=== PATIENT | male | born 1970 | race Caucasian/White ===

== ENCOUNTER 2017-04-07 16:14 | Emergency (ER) | payer OTHER ==
[~2017-04-07] VITALS: Ht 193 cm; Wt 124.0 kg
[~2017-04-07 16:14] MED LIST: CHLO.12%30 SSP; METH40TA9 PO; NAPR-576 PO; OMPR20CCR PO; PENI500T PO
[2017-04-07 16:21] VITALS: BP 119/81; PULSE 94; RESP 16; TEMP 98.6; O2SAT 96
[2017-04-07] MEDS ORDERED: METH10TA PO (16:52)
[2017-04-07] MEDS ORDERED: D 10CAP PO (16:52)
[2017-04-07] MEDS ORDERED: METF500T PO (16:52)
[2017-04-07] MEDS ORDERED: OMEP20TA PO (16:52)
[2017-04-07] MEDS ORDERED: GLIP5TAB8 PO (16:52)
[2017-04-07] MEDS ORDERED: DAPA1TAB3 PO (16:52)
[2017-04-07] MEDS ORDERED: LISI10TA3 PO (16:52)
[2017-04-07] MEDS ORDERED: ATOR10TA15 PO (16:52)
--- NOTE | 2017-04-07 17:15 | PD ---
HPI Chief Complaint: Pain: Acute or Chronic Time Seen by Provider: 16:55 Travel History International Travel<30 days: No Contact w/Intl Traveler<30days: No Traveled to known affect area: No History of Present Illness HPI 46-year-old male presents to the emergency room for evaluation of right foot pain. Patient has had diabetic foot ulcer of the right foot for the past year. States this is the best that his wound has lost but his pain has never been so severe. Pain is localized to the ulcer without radiation. He has been taking 800 mg ibuprofen without relief in symptoms. He sees Dr. Jackson. Patient last saw his tapering machine operator 2 weeks ago and was prescribed Bactrim. States he finished his antibiotics but reports worsening pain. Denies significant drainage. States since being on antibiotics his wound seems to have opened. His tapering machine operator told him that if the antibiotics do not work this time, she was concerned for bone infection. Patient denies fever, chills, nausea, and vomiting. PFSH Past Medical History Hx Anticoagulant Therapy: No Asthma: Yes (CHILD) Cardiovascular Problems: Yes (HTN) Diabetes: Yes Patient Takes Glucophage: Yes Diminished Hearing: No GERD: Yes Genitourinary: Yes (KIDNEY STONES) Hypertension: Yes (not currently taking meds) Kidney Stones: Yes Musculoskeletal: Yes (CHRONIC LOW BACK) Psychiatric: Yes (ANXIETY) Respiratory: Yes (ASTHMA) Integumentary: Yes (STAPH INFECTIONS, right plantar foot chronic ulcer) Immunizations Current: Yes Tetanus Vaccination: < 5 Years Influenza Vaccination: No Past Surgical History Body Medical Devices: PT C/O BACK PAIN RAD DOWN TO RT HEEL. 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) Allergies-Medications (Allergen,Severity, Reaction): Coded Allergies: No Known Allergies (Verified , 04/07/17) Reported Meds & Prescriptions Reported Meds & Active Scripts Active Lortab (Hydrocodone-Acetaminophen) 5-325 Mg Tab 1 Tab PO Q6H PRN Ibuprofen 600 Mg Tab 600 Mg PO Q8HR PRN Reported Methadone (Methadone HCl) 10 Mg Tab 20 Mg PO DAILY Omeprazole 20 Mg Tab 20 Mg PO DAILY Atorvastatin (Atorvastatin Calcium) 10 Mg Tab 10 Mg PO HS Lisinopril 10 Mg Tab 10 Mg PO DAILY D 59807 (Cholecalciferol) 10,000 Unit Cap 5 Cap PO WEEKLY Glipizide 5 Mg Tab 5 Mg PO BIDAC Take 30 minutes before a meal Metformin (Metformin HCl) 500 Mg Tab 500 Mg PO BIDPC With meals Farxiga (Dapagliflozin) 10 Mg Tab 10 Mg PO DAILY Review of Systems Except as stated in HPI: all other systems reviewed are Neg Physical Exam Narrative GENERAL: Well-nourished, well-developed male in no acute distress. Afebrile. Ambulatory. SKIN: Focused skin assessment warm/dry. There is a 3 cm in diameter ulcer to the right plantar foot, just below the first metatarsal phalangeal joint. No surrounding erythema. No purulent drainage. No foul smelling odor. No lymphangitis. The center of the ulcer is black. HEAD: Normocephalic. EYES: No scleral icterus. No injection or drainage. NECK: Supple, trachea midline. No JVD or lymphadenopathy. CARDIOVASCULAR: Regular rate and rhythm without murmurs, gallops, or rubs. RESPIRATORY: Breath sounds equal bilaterally. No accessory muscle use. EXTREMITY: Right rough rice tender to palpation especially near the ulcer. 2+ dorsalis pedis pulse. Full range of motion. No significant edema. Less than 2 second capillary refill distally. Data Data Last Documented VS Vital Signs Date Time Temp Pulse Resp B/P Pulse Ox O2 Delivery O2 Flow Rate FiO2 04/07/17 16:21 98.6 94 16 119/81 96 Orders Complete Blood Count With Diff (04/07/17 17:13) Basic Metabolic Panel (Bmp) (04/07/17 17:13) Mri Foot W&W/O Contrast (04/07/17 ) Gadodiamide Pf Inj (Omniscan Pf Inj) (04/07/17 18:53) Labs Laboratory Tests Test 04/07/17 17:25 White Blood Count 14.4 TH/MM3 Red Blood Count 4.95 MIL/MM3 Hemoglobin 14.3 GM/DL Hematocrit 43.3 % Mean Corpuscular Volume 87.5 FL Mean Corpuscular Hemoglobin 29.0 PG Mean Corpuscular Hemoglobin 33.1 % Concent Red Cell Distribution Width 13.8 % Platelet Count 248 TH/MM3 Mean Platelet Volume 7.8 FL Neutrophils (%) (Auto) 70.1 % Lymphocytes (%) (Auto) 20.6 % Monocytes (%) (Auto) 7.0 % Eosinophils (%) (Auto) 1.7 % Basophils (%) (Auto) 0.6 % Neutrophils # (Auto) 10.1 TH/MM3 Lymphocytes # (Auto) 3.0 TH/MM3 Monocytes # (Auto) 1.0 TH/MM3 Eosinophils # (Auto) 0.2 TH/MM3 Basophils # (Auto) 0.1 TH/MM3 CBC Comment DIFF FINAL Differential Comment Sodium Level 140 MEQ/L Potassium Level 4.0 MEQ/L Chloride Level 102 MEQ/L Carbon Dioxide Level 28.1 MEQ/L Anion Gap 10 MEQ/L Blood Urea Nitrogen 26 MG/DL Creatinine 1.20 MG/DL Estimat Glomerular Filtration 66 ML/MIN Rate Random Glucose 148 MG/DL Calcium Level 9.0 MG/DL MDM Medical Decision Making Medical Screen Exam Complete: Yes Emergency Medical Condition: Yes Medical Record Reviewed: Yes Differential Diagnosis Osteomyelitis, contusion, fracture Narrative Course 46-year-old male with history of diabetes and diabetic foot ulcer for one year presents to the emergency room for evaluation of worsening pain. Patient states he just got off of Bactrim and was told by his tapering machine operator that if his symptoms persist, she would be concerned for osteomyelitis. Patient denies systemic signs of infection. He is afebrile well-appearing in the emergency room. Vital signs stable. Physical exam reveals a noninfected appearing diabetic foot ulcer in the plantar right foot just below the first MTP joint. It is extremely tender to palpation. No lymphangitis. No drainage. Patient has full range motion. Wasn't using capillary refill distally. Given history and physical exam, MRI will be performed to evaluate for possible ostia myelitis. CBC shows mild leukocytosis. BMP is unremarkable. MRI shows small amount of fluid in the first MTP joint but no marrow edema or enhancement to suggest septic arthritis or osteomyelitis. I spoke to my attending physician, Dr. Patrick who agrees patient is stable for outpatient follow-up. He was discharged with prescriptions for ibuprofen and Lortab and told to follow-up with Dr. Jaswant cummins for worsening symptoms. He understands and agrees to plan. Diagnosis Primary Impression: Right foot pain Additional Impression: Diabetic foot ulcer Qualified Code: E11.621 - Diabetic ulcer of other part of right foot associated with type 2 diabetes mellitus, limited to breakdown of skin Referrals: Kira Jackson DPM [employer] Patient Instructions: Diabetic Foot Ulcers (ED), General Instructions Additional Instructions: Rest and drink plenty of fluids. Take ibuprofen with food as directed, as needed for pain. Follow up with a primary care physician. Return to emergency room for worsening symptoms, as discussed. Med/Other Pt SpecificInfo: Prescription(s) given Scripts Hydrocodone-Acetaminophen (Lortab)5-325 Mg Tab1 Tab PO Q6H PRN (PAIN) #12 TAB Ref 0 Prov:Vicki Patrick MD 04/07/17 Ibuprofen 600 Mg [id number] Mg PO Q8HR PRN (PAIN) #21 TAB Ref 0 Prov:Vicki Patrick MD 04/07/17 Disposition: 01 DISCHARGE HOME Condition: Stable So Martínez Apr 07, 2017 17:14
[2017-04-07 17:41] LABS: AUTOMATED NEUTROPHIL # 10.1 TH/MM3 (1.8-7.7); BASOPHIL # 0.1 TH/MM3 (0-0.2); BASOPHIL % 0.6 % (0.0-2.0); EOSINOPHIL # 0.2 TH/MM3 (0-0.4); EOSINOPHIL % 1.7 % (0.0-4.0); HEMATOCRIT 43.3 % (39.0-51.0); HEMO FLAGS DIFF FINAL; LYMPH % 20.6 % (9.0-44.0); MEAN CELL VOLUME 87.5 FL (80.0-100.0); MEAN CORPUSCULAR HGB CONC 33.1 % (32.0-36.0); NEUT % 70.1 % (16.0-70.0); PLATELET COUNT 248 TH/MM3 (150-450); RED BLOOD COUNT 4.95 MIL/MM3 (4.50-5.90); RED CELL DISTRIBUTION WIDTH 13.8 % (11.6-17.2); WHITE BLOOD COUNT 14.4 TH/MM3 (4.0-11.0)
[2017-04-07 17:53] LABS: BICARBONATE 28.1 MEQ/L (21.0-32.0)
[2017-04-07] MEDS ORDERED: GADODIAMIDE PF 287 MG/ML 20 ML VIAL (for RAD MRI) IV ONE (18:53)
--- NOTE | 2017-04-07 19:54 | RADHPO ---
EXAM DATE/TIME: 04/07/2017 18:31 [facility] COMPARISON: No previous studies available for comparison. INDICATIONS : Osteomyelitis. Infection to 1st MTP joint. CONTRAST: 20 cc Omniscan (gadodiamide) IV MEDICAL HISTORY : Diabetes mellitus type 2. Hypertension. SURGICAL HISTORY : None. ENCOUNTER: Initial ACUITY: > 1 year PAIN SCORE: 3/10 LOCATION: Right foot. TECHNIQUE: Multiplanar, multisequence MRI examination was performed without contrast and after the intravenous a dministration of gadolinium. FINDINGS: The exam is severely degraded by motion artifact. There is some excess fluid at the first metatarsoph alangeal joint but no significant marrow edema or marrow enhancement is seen to suggest osteomyelitis . There is some edema in the forefoot most characteristic of cellulitis. No other abnormal fluid leonarda ections in the visualized foot. CONCLUSION: Exam degraded by motion. There is a small amount of fluid in the first metatarsophalangeal joint but no marrow edema or enhancement to suggest a septic arthritis or osteomyelitis. Mild forefoot edema. Lenny Fletcher MD on April 07, 2017 at 19:47 Board Certified Radiologist. This report was verified electronically.
[2017-04-07] MEDS ORDERED: IBUP-232 PO (20:02)
[2017-04-07] MEDS ORDERED: HYDR-3533 PO (20:02)
== END 2017-04-07 20:24 | disposition home or self-care (01) ==
LOC: PHEFT 16:14
DX: M79.671 Pain in right foot (principal); E11.621 Type 2 diabetes mellitus with foot ulcer; I10 Essential (primary) hypertension; F17.210 Nicotine dependence, cigarettes, uncomplicated
CPT/HCPCS: 73720; 80048; 85025; 99285; A9579